=== PATIENT | male | born 1970 | race Caucasian/White ===

== ENCOUNTER → 2022-02-09 09:29 | Outpatient (CLI) | payer BC, SELFPAY ==
[2022-02-09 12:00] LABS: Add Manual Diff / Slide Review NO; Basophils Absolute Auto 0 /uL (0-100); Basophils Percent Auto 0.7 % (0-2); Eosinophils Absolute Auto 100 /uL (0-450); Eosinophils Percent Auto 1.1 % (2-4); Hemoglobin 14.1 g/dL (13.5-17.5); Lymphocytes Absolute Auto 1500 /uL (1100-4500); Lymphocytes Percent Auto 31.9 % (25-40); Mean Corpuscular HGB Conc 35.2 % (30-36); Mean Corpuscular Hemoglobin 31.9 PG (26-34); Mean Corpuscular Volume 90.7 fL (80-100); Monocytes Absolute Auto 400 /uL (0-900); Monocytes Percent Auto 7.7 % (3-14); Neutrophils Absolute Auto 2700 /uL (1500-7000); Neutrophils Percent Auto 58.6 % (50-75); Platelet Count 150 X10^3/uL (150-400); Red Blood Cell Count 4.41 X10^6/uL (4.5-5.9); Red Cell Distribution Width 13.6 % (11.6-14.8); White Blood Cell Count 4.6 X10^3/uL (4.5-11.0)
[2022-02-09 12:27] LABS: Alanine Aminotransferase 24 IU/L (<50); Albumin 4.6 g/dL (3.5-5.0); Albumin Globulin Ratio 1.6 (1.0-2.8); Alkaline Phosphatase 63 U/L (38-126); Aspartate Aminotransferase 29 IU/L (17-59); BUN Creatinine Ratio 16.9 (6-22); Bilirubin Total 0.6 mg/dL (0.2-1.3); Blood Urea Nitrogen 13 mg/dL (9-20); Calcium 9.1 mg/dL (8.4-10.2); Carbon Dioxide 28 mmol/L (22-32); Chloride 98 mmol/L (98-107); Cholesterol 164 mg/dL (140-199); Estimated Glomerular Filt Rate > 60 mL/min (>60); Globulin 2.8 g/dL (1.7-4.1); Glucose 81 mg/dL (70-100); HDL Cholesterol 52 mg/dL (40-60); HEMOLYSIS < 15 (0-50); LDL Cholesterol Calculated 84 mg/dL (<100); Potassium 4.2 mmol/L (3.4-5.1); Sodium 138 mmol/L (137-145); Total Protein 7.4 g/dL (6.3-8.2); Triglycerides 139 mg/dL (35-150)
[2022-02-09 17:11] LABS: Creatinine Urine Random 245.3 mg/dL
[2022-02-09 17:13] LABS: Microalbumi Creatinin Ratio Ur 7.3 ug/mg CR (<30); Microalbumin Urine Random 1.8 mg/dL (0-1.6)
== END ==
PROVIDERS: PCP Family Medicine; Referring Provider Family Medicine; Visit Provider Family Medicine
DX: E78.2 Mixed hyperlipidemia (principal); I10 Essential (primary) hypertension; K21.9 Gastro-esophageal reflux disease without esophagitis
CPT/HCPCS: 36415; 80053; 80061; 82043; 82570; 85025

== ENCOUNTER → 2022-02-15 09:01 | Outpatient (CLI) | payer BC, SELFPAY ==
--- NOTE | 2022-02-15 09:03 | DI.RAD.S_ITS ---
PROCEDURE: XR LUMBAR SPINE 2-3V INDICATIONS: chronic back/neck pain as well as bilateral hip pain TECHNIQUE: 3 views of the lumbar spine were acquired. COMPARISON: None. FINDINGS: Bones: 5 [id number] vertebrae are present. There is mild 4 mm grade 1 retrolisthesis of L1 on L2.. No vertebral body compression fractures. No suspicious bony lesions. Multilevel disc space narrowing degenerative endplate changes are most prominent at the L1-2 level. Facet hypertrophy is seen from L2-3 through L5-S1. Soft tissues: Overlying bowel gas pattern is normal. No suspicious soft tissue calcifications. IMPRESSION: Multilevel spondylosis. Lumbar spine MRI could be performed for further evaluation if indicated clinically. Dictated by: Nicholas Luna M.D. on 02/15/2022 at 11:31 Approved by: Nicholas Luna M.D. on 02/15/2022 at 11:34
--- NOTE | 2022-02-15 09:03 | DI.RAD.S_ITS ---
PROCEDURE: XR CERVICAL SPINE 2V OR 3V INDICATIONS: chronic neck pain with bilateral hand numbness at nighttime TECHNIQUE: 3 views of the cervical spine were acquired. COMPARISON: None. FINDINGS: Bones: No acute fractures or dislocations to the C7 level. The lateral masses of C1 appear intact on the odontoid view. No suspicious bony lesions. Multilevel degenerative endplate changes are seen from C4-5 through C6-7. There is multilevel uncovertebral joint and facet hypertrophy. Soft tissues: No prevertebral soft tissue swelling. IMPRESSION: Evkn-zv-fknzjqgu multilevel spondylosis. No acute osseous abnormality. Cervical spine MRI could be performed for further evaluation if indicated clinically and if there are no contraindications. Dictated by: Nicholas Luna M.D. on 02/15/2022 at 16:23 Approved by: Nicholas Luna M.D. on 02/15/2022 at 16:24
--- NOTE | 2022-02-15 09:03 | DI.RAD.S_ITS ---
PROCEDURE: XR HIP W PEL IF DONE ALEX MIN 4V INDICATIONS: chronic back/neck pain as well as bilateral hip pain TECHNIQUE: AP pelvis with lateral view of each hip. COMPARISON: None. FINDINGS: Bones: No acute fractures or dislocations. Pelvic ring appears intact. No suspicious bony lesions. There is moderate to severe narrowing of the superior left hip with subchondral sclerosis and marginal osteophyte formation. Moderate degenerative changes are seen at the right hip. Degenerative changes are seen in the lumbar spine and pubic symphysis. Soft tissues: The visualized bowel gas pattern is normal. No suspicious soft tissue calcifications. IMPRESSION: Moderate to severe left hip osteoarthrosis and moderate right hip osteoarthrosis. Dictated by: Nicholas Luna M.D. on 02/15/2022 at 11:34 Approved by: Nicholas Luna M.D. on 02/15/2022 at 11:36
--- NOTE | 2022-02-15 09:03 | DI.RAD.S_ITS ---
PROCEDURE: XR ELBOW LT MIN 3V INDICATIONS: left elbow bony growth TECHNIQUE: 3 views of the elbow were acquired. COMPARISON: None. FINDINGS: Bones: No acute fractures or dislocations. An enthesophyte is present at the olecranon at the region of the triceps tendon insertion. Soft tissues: No elbow joint effusion. Small rounded nonspecific calcification within the radial soft tissues of the distal upper arm only seen on 1 image, could be postinflammatory. IMPRESSION: 1. No acute fracture visualized. 2. An enthesophyte is present at the olecranon at the region of the triceps tendon insertion. Dictated by: Nicholas Alarcon M.D. on 02/15/2022 at 14:06 Approved by: Nicholas Alarcon M.D. on 02/15/2022 at 14:13
== END ==
PROVIDERS: PCP Family Medicine; Referring Provider Family Medicine; Visit Provider Family Medicine
DX: M47.817 Spondylosis without myelopathy or radiculopathy, lumbosacral region (principal); M47.812 Spondylosis without myelopathy or radiculopathy, cervical region; M16.0 Bilateral primary osteoarthritis of hip; M25.722 Osteophyte, left elbow; M47.816 Spondylosis without myelopathy or radiculopathy, lumbar region; M54.2 Cervicalgia; M54.50 Low back pain, unspecified; M25.551 Pain in right hip; M25.552 Pain in left hip; M25.522 Pain in left elbow; G89.29 Other chronic pain
CPT/HCPCS: 72040; 72100; 73080; 73522

== ENCOUNTER → 2023-01-17 08:48 | Outpatient (CLI) | payer BC, SELFPAY ==
[2023-01-17 09:36] LABS: Add Manual Diff / Slide Review NO; Basophils Absolute Auto 100 /uL (0-100); Basophils Percent Auto 1.1 % (0-2); Eosinophils Absolute Auto 200 /uL (0-450); Hematocrit 41.8 % (41-53); Hemoglobin 14.7 g/dL (13.5-17.5); Lymphocytes Absolute Auto 2300 /uL (1100-4500); Lymphocytes Percent Auto 40.7 % (25-40); Mean Corpuscular HGB Conc 35.2 % (30-36); Mean Corpuscular Hemoglobin 31.8 PG (26-34); Mean Corpuscular Volume 90.4 fL (80-100); Monocytes Absolute Auto 400 /uL (0-900); Monocytes Percent Auto 6.3 % (3-14); Neutrophils Absolute Auto 2700 /uL (1500-7000); Neutrophils Percent Auto 48.9 % (50-75); Platelet Count 172 X10^3/uL (150-400); Red Blood Cell Count 4.62 X10^6/uL (4.5-5.9); Red Cell Distribution Width 13.9 % (11.6-14.8); White Blood Cell Count 5.5 X10^3/uL (4.5-11.0)
[2023-01-17 09:51] LABS: Alanine Aminotransferase 35 IU/L (<50); Albumin 4.7 g/dL (3.5-5.0); Albumin Globulin Ratio 1.6 (1.0-2.8); Alkaline Phosphatase 63 U/L (38-126); Aspartate Aminotransferase 33 IU/L (17-59); Bilirubin Total 0.7 mg/dL (0.2-1.3); Blood Urea Nitrogen 12 mg/dL (9-20); Calcium 9.2 mg/dL (8.4-10.2); Carbon Dioxide 27 mmol/L (22-32); Chloride 101 mmol/L (98-107); Cholesterol 189 mg/dL (140-199); Estimated Glomerular Filt Rate > 60 mL/min (>60); Globulin 2.9 g/dL (1.7-4.1); Glucose 94 mg/dL (70-100); HDL Cholesterol 58 mg/dL (40-60); HEMOLYSIS < 15 (0-50); LDL Cholesterol Calculated 90 mg/dL (<100); Potassium 4.3 mmol/L (3.4-5.1); Sodium 138 mmol/L (137-145); Total Protein 7.6 g/dL (6.3-8.2); Triglycerides 207 mg/dL (35-150)
[2023-01-17 10:17] LABS: TSH w/ Reflex to FT4 1.24 uIU/mL (0.47-4.68)
[2023-01-17 12:10] LABS: Microalbumin Urine Random < 0.6 mg/dL (0-1.6)
== END ==
PROVIDERS: PCP Family Medicine; Referring Provider Family Medicine; Visit Provider Family Medicine
DX: E78.5 Hyperlipidemia, unspecified (principal); K21.9 Gastro-esophageal reflux disease without esophagitis; I10 Essential (primary) hypertension
CPT/HCPCS: 36415; 80053; 80061; 82043; 82570; 84443; 85025

== ENCOUNTER → 2023-06-29 17:20 | Outpatient (CLI) | payer BC, SELFPAY ==
--- NOTE | 2023-06-29 | DI.MRI.S_ITS ---
PROCEDURE: MR ANKLE LT WO CON INDICATIONS: PAIN TECHNIQUE: Noncontrast sagittal T1 spin echo and T2 fast spin echo with fat saturation, axial proton density fast spin echo and T2 fast spin echo with fat saturation, coronal T1 spin echo and T2 fast spin echo with fat saturation through the ankle/hindfoot. COMPARISON: None. FINDINGS: Image quality: Excellent. Bones and joints: Osseous edema is seen at the lateral aspect of the navicular, lateral talar head, medial cuboid, and anterior process of the calcaneus, which is suspicious for osseous contusions. Mild osseous edema is seen at the posterior calcaneus near the Achilles tendon insertion and. A moderate posterior calcaneal enthesophyte is present. No hindfoot coalitions. No osteochondral injuries of the talar dome. Medial structures: The deltoid ligament and the spring ligament complex are intact. The posterior tibialis, flexor digitorum longus, and flexor hallucis longus tendons are intact. The posterior tibial neurovascular bundle appears normal within the tarsal tunnel, without extrinsic mass effect. Lateral structures: The anterior talofibular, calcaneofibular, and posterior talofibular ligaments are intact. The anterior and posterior tibiofibular ligaments are intact. The peroneus longus and brevis tendons demonstrate mild tendinosis. An accessory peroneus quartus muscle is noted, an anatomical variant. The sinus tarsi demonstrates normal fatty signal. Anterior structures: The tibialis anterior, extensor hallucis longus, and extensor digitorum longus tendons appear intact. The dorsal talonavicular ligament appears intact. Posterior and plantar structures: Mild to moderate Achilles tendinosis. No significant tendon tearing is seen. There is mild thickening of the proximal plantar fascia without surrounding edema. No abductor digiti minimi muscle atrophy to suggest John neuropathy. IMPRESSION: 1. Mild osseous edema at the lateral aspect of the navicular and talar head and the medial aspect of the cuboid and anterior process of the calcaneus, which is suspicious for osseous contusions. 2. [id number]-ug-[id number] Achilles tendinosis. Mild osseous edema at the posterior calcaneus involving the Achilles insertion may be related to traction trabecular bone injury or an osseous contusion. No discrete tendon tearing is seen. 3. Mild chronic proximal plantar fasciitis. 4. Mild peroneus brevis and longus tendinosis. Approved by: Nicholas Luna M.D. on 06/30/2023 at 12:04
[2023-06-29 18:42] LABS: Uric Acid 7.3 mg/dL (3.5-8.5)
== END ==
PROVIDERS: PCP Family Medicine; Referring Provider Podiatrist; Visit Provider Podiatrist
DX: M76.62 Achilles tendinitis, left leg (principal); M72.2 Plantar fascial fibromatosis; R60.0 Localized edema; M79.672 Pain in left foot; R26.2 Difficulty in walking, not elsewhere classified
CPT/HCPCS: 36415; 73721; 84550

== ENCOUNTER → 2024-01-04 09:21 | Outpatient (CLI) | payer BC, SELFPAY ==
[2024-01-04 11:04] LABS: Add Manual Diff / Slide Review NO; Basophils Absolute Auto 100 /uL (0-100); Basophils Percent Auto 0.8 % (0-2); Eosinophils Absolute Auto 100 /uL (0-450); Eosinophils Percent Auto 2.2 % (2-4); Hematocrit 44.7 % (41-53); Hemoglobin 15.5 g/dL (13.5-17.5); Lymphocytes Absolute Auto 2500 /uL (1100-4500); Mean Corpuscular HGB Conc 34.7 % (30-36); Mean Corpuscular Hemoglobin 31.4 PG (26-34); Mean Corpuscular Volume 90.6 fL (80-100); Monocytes Absolute Auto 400 /uL (0-900); Monocytes Percent Auto 6.3 % (3-14); Neutrophils Absolute Auto 3300 /uL (1500-7000); Neutrophils Percent Auto 51.7 % (50-75); Platelet Count 177 X10^3/uL (150-400); Red Blood Cell Count 4.93 X10^6/uL (4.5-5.9); Red Cell Distribution Width 13.7 % (11.6-14.8); White Blood Cell Count 6.3 X10^3/uL (4.5-11.0)
[2024-01-04 11:52] LABS: Alanine Aminotransferase 31 IU/L (<50); Albumin 4.6 g/dL (3.5-5.0); Albumin Globulin Ratio 1.6 (1.0-2.8); Alkaline Phosphatase 76 U/L (38-126); Aspartate Aminotransferase 33 IU/L (17-59); BUN Creatinine Ratio 15.8 (6-22); Blood Urea Nitrogen 12 mg/dL (9-20); Calcium 9.7 mg/dL (8.4-10.2); Carbon Dioxide 26 mmol/L (22-32); Chloride 102 mmol/L (98-107); Cholesterol 198 mg/dL (140-199); Estimated Glomerular Filt Rate > 60 mL/min (>60); Globulin 2.8 g/dL (1.7-4.1); Glucose 90 mg/dL (70-100); HDL Cholesterol 52 mg/dL (40-60); HEMOLYSIS < 15 (0-50); LDL Cholesterol Calculated 86 mg/dL (<100); Potassium 5.1 mmol/L (3.4-5.1); Sodium 138 mmol/L (137-145); Total Protein 7.4 g/dL (6.3-8.2); Triglycerides 300 mg/dL (35-150)
[2024-01-04 11:54] LABS: TSH w/ Reflex to FT4 1.43 uIU/mL (0.47-4.68)
== END ==
PROVIDERS: PCP Family Medicine; Referring Provider Family Medicine; Visit Provider Family Medicine
DX: E78.5 Hyperlipidemia, unspecified (principal); I10 Essential (primary) hypertension; K21.9 Gastro-esophageal reflux disease without esophagitis
CPT/HCPCS: 36415; 80053; 80061; 84443; 85025

== ENCOUNTER → 2024-01-08 15:27 | Outpatient (CLI) | payer BC, SELFPAY ==
--- NOTE | 2024-01-08 15:28 | DI.RAD.S_ITS ---
PROCEDURE: XR HIP W PEL IF DONE ALEX MIN 4V INDICATIONS: chronic hip OA TECHNIQUE: AP pelvis with lateral view(s) of the bilateral hip(s). COMPARISON: [facility], CR, XR HIP W PEL IF DONE ALEX 3TO4V, 02/15/2022, 9:13. FINDINGS: Bones: No fractures or dislocations. Moderate right worse than left bilateral hip joint osteoarthritic changes are seen with significant joint space narrowing, subchondral sclerosis and marginal osteophyte formation not significantly changed from 2021 study. No evidence of avascular necrosis of femoral head. Pelvic ring appears intact. No suspicious bony lesions. Soft tissues: The visualized bowel gas pattern is normal. No suspicious soft tissue calcifications. IMPRESSION: Moderate left worse than right bilateral hip joint osteoarthritis. No pelvic or hip fracture. No evidence of avascular necrosis. Dictated by: Chris Pelayo M.D. on 01/09/2024 at 14:40 Approved by: Chris Pelayo M.D. on 01/09/2024 at 14:40
== END ==
LOC: RAD 15:28
PROVIDERS: PCP Family Medicine; Referring Provider Family Medicine; Visit Provider Family Medicine
DX: M16.0 Bilateral primary osteoarthritis of hip (principal); M25.551 Pain in right hip; M25.552 Pain in left hip; M54.50 Low back pain, unspecified; G89.29 Other chronic pain
CPT/HCPCS: 73522

== ENCOUNTER → 2024-11-18 15:31 | Outpatient (CLI) | payer BC, SELFPAY ==
--- NOTE | 2024-11-18 15:32 | DI.RAD.S_ITS ---
PROCEDURE: XR HIP W PEL IF DONE BILAT 2V INDICATIONS: Bilateral hip pain, back pain, L knee pain TECHNIQUE: AP pelvis with lateral view(s) of the bilateral hip(s). COMPARISON: [facility], , XR HIP W PEL IF DONE ALEX 3TO4V, 01/08/2024, 15:31. FINDINGS: Bones: No fractures or dislocations. Moderate osteoarthritic degenerative changes of the bilateral hips include joint space narrowing, marginal osteophytosis and acetabular subchondral sclerosis. Pelvic ring appears intact. No suspicious bony lesions. Soft tissues: The visualized bowel gas pattern is normal. No suspicious soft tissue calcifications. IMPRESSION: Degenerative change of the bilateral hips without evidence of acute bony abnormality. Dictated by: Sy Loya M.D. on 11/19/2024 at 10:23 Approved by: Sy Loya M.D. on 11/19/2024 at 10:24
--- NOTE | 2024-11-18 15:32 | DI.RAD.S_ITS ---
PROCEDURE: XR LUMBAR SPINE 2-3V INDICATIONS: Bilateral hip pain, back pain, L knee pain TECHNIQUE: 3 views of the lumbar spine were acquired. COMPARISON: [facility], , XR LUMBAR SPINE 2-3V, 02/15/2022, 9:13. FINDINGS: Bones: 5 [id number]-hirbtet vertebrae are present. Mild multilevel retrolisthesis is stable in appearance and includes retrolisthesis of T12 on L1 measuring 3 mm, of L1 on L2 measuring 5 mm and of L2 on L3 measuring 3 mm. There is otherwise normal bony alignment. Moderate disc height loss at the T12-L1, L1-L2 and L5-S1 levels with adjacent endplate sclerosis and multilevel anterior osteophytosis. No vertebral body compression fractures. No suspicious bony lesions. Soft tissues: Overlying bowel gas pattern is normal. No suspicious soft tissue calcifications. IMPRESSION: Stable appearing multilevel spondylosis and spondylolisthesis without evidence of acute osseous Dictated by: Sy Loya M.D. on 11/19/2024 at 10:25 Approved by: Sy Loya M.D. on 11/19/2024 at 10:27
--- NOTE | 2024-11-18 15:32 | DI.RAD.S_ITS ---
PROCEDURE: XR KNEE LT 3V INDICATIONS: Bilateral hip pain, back pain, L knee pain TECHNIQUE: 3 views of the knee were acquired. COMPARISON: None. FINDINGS: Bones: No fractures or dislocations. Moderate medial and mild to moderate lateral tibiofemoral and moderate patellofemoral compartment narrowing with associated osteophytosis. No suspicious bony lesions. Soft tissues: Trace joint effusion. No suspicious soft tissue calcifications. IMPRESSION: KL grade 2 tricompartmental osteoarthritis without evidence of acute osseous abnormality. Trace joint effusion. Dictated by: Sy Loya M.D. on 11/19/2024 at 10:24 Approved by: Sy Loya M.D. on 11/19/2024 at 10:25
== END ==
PROVIDERS: PCP Family Medicine; Referring Provider Family Medicine; Visit Provider Family Medicine
DX: M17.12 Unilateral primary osteoarthritis, left knee (principal); M47.816 Spondylosis without myelopathy or radiculopathy, lumbar region; M43.16 Spondylolisthesis, lumbar region; M25.551 Pain in right hip; M25.552 Pain in left hip; M25.562 Pain in left knee; M54.50 Low back pain, unspecified
CPT/HCPCS: 72100; 73521; 73562

== ENCOUNTER → 2024-12-13 07:44 | Outpatient (CLI) | payer BC, SELFPAY ==
[2024-12-13 08:18] LABS: Add Manual Diff / Slide Review NO; Hematocrit 42.3 % (41-53); Hemoglobin 14.3 g/dL (13.5-17.5); Lymphocytes Absolute Auto 1900 /uL (1100-4500); Mean Corpuscular HGB Conc 33.8 % (30-36); Mean Corpuscular Hemoglobin 30.4 PG (26-34); Mean Corpuscular Volume 90.0 fL (80-100); Platelet Count 161 X10^3/uL (150-400)
--- NOTE | 2024-12-13 08:18 | EKG_ITS ---
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
[2024-12-13 08:27] LABS: Hemoglobin A1C% w Est Avg Glu 5.7 % (4.0-6.0)
[2024-12-13 08:56] LABS: HEMOLYSIS < 15 (0-50)
[2024-12-13 09:07] LABS: Prealbumin 23.1 mg/dL (17.6-36.0)
[2024-12-13 09:25] LABS: Vitamin D 25 Hydroxy (D3) 35.0 ng/mL (30.0-100.0)
[2024-12-13 09:31] LABS: TSH w/ Reflex to FT4 1.03 uIU/mL (0.47-4.68)
[2024-12-13 09:36] LABS: Alanine Aminotransferase 21 IU/L (<50); Albumin 4.4 g/dL (3.5-5.0); Albumin Globulin Ratio 1.8 (1.0-2.8); Alkaline Phosphatase 84 U/L (38-126); Blood Urea Nitrogen 15 mg/dL (9-20); Calcium 9.1 mg/dL (8.4-10.2); Carbon Dioxide 26 mmol/L (22-32); Chloride 106 mmol/L (98-107); Estimated Glomerular Filt Rate > 60 mL/min (>60); Globulin 2.4 g/dL (1.7-4.1); Glucose 106 mg/dL (70-99); Potassium 4.6 mmol/L (3.4-5.1); Sodium 139 mmol/L (137-145); Total Protein 6.8 g/dL (6.3-8.2)
[2024-12-22 14:11] LABS: Percent Free Testosterone 2.64
== END ==
PROVIDERS: PCP Family Medicine; Referring Provider Orthopaedic Surgery Adult Reconstructive Orthopaedic Surgery; Visit Provider Orthopaedic Surgery Adult Reconstructive Orthopaedic Surgery
DX: Z12.5 Encounter for screening for malignant neoplasm of prostate (principal); I10 Essential (primary) hypertension; R68.82 Decreased libido; E78.2 Mixed hyperlipidemia; Z13.1 Encounter for screening for diabetes mellitus; M25.551 Pain in right hip; M25.552 Pain in left hip; M54.50 Low back pain, unspecified; G89.29 Other chronic pain; Z01.812 Encounter for preprocedural laboratory examination; R53.83 Other fatigue
CPT/HCPCS: 36415; 80053; 82306; 83036; 84134; 84402; 84403; 84443; 85025; 93005; G0103

== ENCOUNTER → 2025-01-27 10:22 | Outpatient (CLI) | payer OTHER, SELFPAY | PROVIDERS: PCP Family Medicine; Referring Provider Orthopaedic Surgery Adult Reconstructive Orthopaedic Surgery; Visit Provider Orthopaedic Surgery Adult Reconstructive Orthopaedic Surgery | DX: Z01.818 Encounter for other preprocedural examination (principal) | CPT/HCPCS: 80321 ==

== ENCOUNTER 2025-04-14 06:12 | Day surgery (SDC) | payer OTHER, SELFPAY ==
[2025-04-07 09:29] VITALS: BMI 29.7
[2025-04-14] VITALS (11 sets, daily range): BP systolic 92–140; BP diastolic 47–89; PULSE 65–74; RESP 16–18; TEMP 36.2–36.7; O2SAT 93–100
--- NOTE | 2025-04-14 06:00 | DI.RAD.S_ITS ---
PROCEDURE: XR HIP W PEL IF DONE LT 2V INDICATIONS: CECE TECHNIQUE: 3 intraoperative fluoroscopic view(s) of the hip acquired. COMPARISON: [facility], CR, XR HIP W PEL IF DONE BILAT 2V, 11/18/2024, 15:48. FINDINGS: Intraoperative fluoroscopic images shows left total hip arthroplasty in progress. IMPRESSION: Fluoro guidance was provided intraoperatively for left total hip arthroplasty performed by ordering clinician. Dictated by: Chris Pelayo M.D. on 04/14/2025 at 9:53 Approved by: Chris Pelayo M.D. on 04/14/2025 at 9:54
[2025-04-14] MEDS: ACETAMINOPHEN 325 MG TABLET 975 MG PO (07:08)
[2025-04-14] MEDS: LACTATED RINGERS 1,000 ML 42 ML IV (07:08)
[2025-04-14] MEDS: MELOXICAM 7.5 MG TABLET 15 MG PO (07:08)
--- NOTE | 2025-04-14 07:24 | PM.PREOP ---
Pre-operative Note Interval Note History & Physical reviewed/Exam performed by Physician: Yes Changes to H&P: No
[2025-04-14] MEDS: TRANEXAMIC ACID 1,000 MG in SODIUM CHLORIDE 0.9% 100 ML 200 MG IV ×2 (08:00→09:34)
--- NOTE | 2025-04-14 08:19 | SUR.OPER ---
Supine on padded Hedrick table with bilateral legs secured in padded positioning boots and suspended in positioning spars, operative leg in traction per surgeon. Head on one pillow. Arm on non-operative side secured on padded armboard <90 degrees abduction. Arm on operative side padded and resting across chest then secured with tape over sheet. Padded perineal post in place per surgeon.
[2025-04-14] MEDS: KETOROLAC 30 MG/ML VIAL 15 MG INJ (08:28)
--- NOTE | 2025-04-14 09:39 | P.OP_ITS ---
Operative Date/Time/Diagnoses Date of procedure: 04/14/25 Time of procedure: 07:45 Pre-op diagnosis: Left hip osteoarthritis and avascular necrosis Post-op diagnosis: same Procedure & Clinicians Procedure: Left total hip arthroplasty Same procedure(s) as scheduled: Yes Surgeon: Roberto Suarez Assisted?: Yes Wet Cotton Feeder: Coco Hilliard Anesthesia Type: Spinal, Sedation and Local Operative Notes Findings: Severe arthritis Applied: implant(s) Estimated Blood Loss (mL): 200 Procedure in detail: 1. Left Uncemented Direct Anterior Frankie Total Hip Arthroplasty (43108) 2. Computer-Assisted Musculoskeletal Surgical Navigational Orthopedic Procedure Using Fluoroscopic Image Guidance (0054T) Implants: * G7 PPS size 58 cup? * Z1 femoral stem size 8 standard offset? * 40 mm +0 ceramic femoral head? Procedure Summary: This 54-year-old male patient had left hip arthritis as well as avascular necrosis. Intraoperatively today I did note an area of subchondral collapse consistent with avascular necrosis after removing his femoral head. He had a muscular body habitus and a conjoined tendon release was required to access his femur. His operative site was 2 mm long preoperatively and following final component insertion on the ortho grid overlay I had replicated this on the operative side which was very slightly long relative to the nonoperative side. Procedure in Detail: This patient was seen preoperatively and evaluated for hip pain which was refra ctory to numerous nonoperative treatment modalities. Their hip pain correlated with radiographic changes demonstrating significant degeneration in the hip joint. The risks and benefits of continued nonoperative management versus operative management were discussed at length and all of the patient?s questions were answered. Additional educational materials providing further details beyond our discussion in clinic were provided via a publicly available patient education video which included the incidence of medical complications associated with total hip arthroplasty, reasons for revision following total hip arthroplasty, and patient satisfaction rates following total hip arthroplasty. With this understanding of the risks inherent to the procedure, the patient elected to move forward with operative management. Following preoperative optimization, the patient was scheduled for surgery. The patient was met in the preoperative holding area the day of the procedure and all questions were ans wered. The patient?s nares were swabbed in order to decolonize them from MRSA. Informed consent was signed and the left limb was marked with indelible ink.? The patient was brought back to the operating room where anesthesia was induced. The patient was transferred to the [place] table and all bony prominences were padded. The operative site was prepped and draped in the usual sterile fashion. Prior to incision, tranexamic acid and cefazolin were administered. Operative templating images were displayed demonstrating the anticipated implant sizes and correct operative extremity. A timeout procedure was performed verifying the patient?s identity, medical comorbidities, allergies, relevant medications, anesthesia type and the surgical plan. All present were in agreement. The assistance of a physician human resources assistant manager was required for positioning, room setup, soft tissue retraction and wound closure. Without this assistance, the procedure would have been significantly more challenging and time consuming.?? A direct anterior approach to the hip was utilized. This was performed with a longitudinal incision through a Heuter interval. The incision was planned 2 cm distal and 2 cm lateral to the ASIS extending towards the lateral patella, in line with the muscle body of the TFL. Following incision, the subcutaneous tissue was dissected while taking care to avoid injury to the lateral femoral cutaneous nerve. The fascia overlying the TFL was identified by dissecting off the overlying fat and identifying perforating vessels to the TFL. The TFL fascia was incised and dissected away from the medial border of the TFL. A retractor was placed over the superior femoral neck between the abductors and the hip capsule and used to reflect the TFL laterally. A Austin self-retainer was then placed in the distal aspect of the wound between the TFL and the rectus femoris. This was tensioned to open up the direct anterior interval and the lateral circumflex vessels were identified and coagulated using electrocautery. The floor of the TFL fascia was incised, exposing the pericapsular fat overlying the hip capsule. A second cobra retractor was placed on the inferior femoral neck. A retractor was placed on the anterior wall of the acetabulum and used to tension the reflected head of rectus femoris, which was then released in order to limit soft tissue tension. A capsulotomy was made in the midline of the anterior hip capsule in line with the femoral neck ending at the vastus tubercle. The anterior retractor was removed as soon as the capsulotomy was completed in order to limit the amount of time that a soft tissue retractor remained on the anterior wall and limit tension on the femoral nerve. Tag stitches were placed in the superior and inferior leaflets of the hip capsule. An Rod soft tissue retractor was introduced over the tag stitches and tensioned in the interval between the rectus femoris and the TFL in order to retract and protect those muscles. The cobra retractors were replaced intracapsularly, with one over the superior neck in the pocket created by the base of the greater trochanter and the other on the femoral head. The capsulotomy was extended laterally to the base of the greater trochanter and medially to the lesser trochanter. This required externally rotating the hip. Once the lesser trochanter had been identified, a neck cut was planned according to measurements from preoperative templating. A ruler was cut at the length measured between the superior aspect of the lesser trochanter and the collar of the prosthesis. This line was extended towards the inferior aspect of the lateral cobra retractor to plan a cut which would leave minimal residual femoral neck laterally. The neck was cut at 60 degrees of external rotation along that line. A second cut was performed to remove a large napkin ring and facilitate head extraction. The napkin ring cut and femoral head were removed.?? A broad anterior wall retractor was placed between the labrum and the anterior capsule so that the anterior capsule would prevent capturing and pinching the femoral nerve anteriorly. An additional retractor was placed on the posterior wall. External rotation and traction were applied through the [place] table so that the cut surface of the femoral neck would not restrict access to the acetabulum. The labrum was excised sharply and the pulvinar was excised with electrocautery to limit bleeding from branches of the obturator artery. Acetabular reamers were selected based on preoperative templating and measurements of the excised femoral head. These were introduced into the acetabulum. Fluoroscopy was utilized to replicate a standing AP pelvis radiograph by centering over the pelvis, rotating until there was appropriate symmetry between the obturator foramen, and introducing caudal tilt to match the position of the pubic symphysis relative to the sacrococcygeal junction according to the patient?s anatomy. Once satisfied with the reaming depth corresponding to the preoperative template and the pinch fit between the columns, an appropriate sized acetabular cup was selected which would provide 1 mm of press-fit. This cup was introduced and manipulated until appropriate abduction and anteversion angles were obtained with careful attention to appropriate abduction and anteversion angles as evaluated by the position of the cup relative to the anterior and posterior fowler of the acetabulum and the AP fluoroscopy which recreated the patient?s standing radiograph. The cup was impacted into place. Peripheral osteophytes were removed. The acetabular liner was then placed with care to ensure locking of the locking mechanism. Attention was then turned to the femur. All retractors were removed, traction was released, a retractor was placed in the interval between the hip capsule and the gluteus minimus. The lateral capsule was released using electrocautery. Traction was released and a [place] hook was placed posteriorly around the proximal femur at the level of the vastus ridge. The table height was lowered in order to restrict the tension on the anterior structures during hip hyperextension to limit the risk of femoral nerve palsy. With traction off and the hip at 90 degrees of external rotation, the hip was hyperextended and adducted while manually elevating the femur away from the acetabulum with the [place] hook to avoid hooking the greater trochanter on the pelvis. An asymmetric retractor was placed over the calcar and a broad double-pronged retractor was placed over the greater trochanter. The tag stitch capturing the lateral leaflet of the capsule was moved to the medial side, leaving the conjoined and piriformis tendons isolated in the face of the greater trochanter. The hip was externally rotated and elevated. A release of the conjoined tendon was necessary in order to obtain adequate exposure for broaching. The canal was opened with an opening broach and a rasp was used to remove cancellous bone. A rongeur was used to remove the residual lateral bone at the base of the greater trochanter to avoid placing the stem in varus. The femur was then broached to the appropriate sized stem yielding good rotational fit and fill of the canal as well as appropriate version of the stem trial. Neck and head trials were placed, all retractors were removed and the hip was returned to neutral abduction and extension. I then reduced the hip and manually trialed it before changing surgical gloves. Initial trialing was performed with a size 7 broach, a standard offset neck and a -3.5 head. I initially manually externally rotated the hip and found that it immediately dislocated so I switched to a +0 head. This resolved the instability as I was now unable to manually dislocate the hip. I then locked the hip in 45 degrees of external rotation and dropped it to the floor with traction off which demonstrated no instability. An AP pelvis fluoroscopic image matching the preoperative standing radiograph with both lesser trochanters visible and both hips in 40 degrees of external rotation demonstrated that the operative side was very slightly long and had nearly identical offset to the nonoperative side. AP and lateral hip fluoroscopic images were obtained to evaluate the broach size which demonstrated good canal fill. The hip was dislocated and I returned to the broaching position. Based on my evaluation during initial trialing I planned to place the definitive implants. Upon returning to the broach in position I found that the size 7 broach was rotationally unstable so I upsize to a size 8 broach and sink that to the same position. The definitive stem was placed and the trunnion was cleaned and dried. I placed a ceramic head onto the trunnion and impacted it into place on the Sheppard taper.?? All retractors were removed and the hip was reduced. A dilute mixture of betadine and peroxide was used to bathe the soft tissues during final fluoroscopic assessment. Appropriate component positioning was confirmed on an ortho grid overlay image. Appropriate stem fill was evaluated on AP and lateral hip radiographs. No previously unrecognized fractures were identified on these radiographs. There was no hip instability with maximum external rotation as well as a 45 degree drop test. The hip was copiously irrigated with pulse lavage. The capsule was closed with absorbable interrupted suture. The TFL fascia was closed with barbed suture while carefully protecting the lateral femoral cutaneous nerve from entrapment. A mixture of Ropivacaine, Epinephrine and Toradol was infiltrated throughout the soft tissues. The skin was closed with 2-0 and 3-0 sutures. Surgical glue was applied and a soft dressing was placed.??The sponge, instrument and needle counts were reported as being correct at the end of the case.??No obvious complications occurred. The patient was transferred from the [place] table back to a stretcher. The patient emerged from anesthesia without difficulty and was taken to the PACU in a stable condition.? Plan for aftercare: * No hip precautions * Weightbearing as tolerated * Aspirin 81 twice per day for DVT prophylaxis * Anticipate discharge home today * Multimodal pain regimen with no IV opioids ordered * Follow up at [facility] in 2 weeks Complications: none Post-operative Condition: stable Disposition: same day surgery
--- NOTE | 2025-04-14 10:30 | DI.RAD.S_ITS ---
PROCEDURE: XR HIP W PEL IF DONE LT 2V INDICATIONS: POST OP LEFT ANTERIOR HIP TECHNIQUE: AP view of the pelvis and lateral view of left hip. COMPARISON: [facility], [facility], XR HIP W PEL LT 2V, 04/14/2025, 8:39. FINDINGS: Acute postsurgical changes of left total hip arthroplasty. No hardware failure. Moderate right hip osteoarthritis. No fracture. No dislocation. IMPRESSION: Expected postoperative changes. Dictated by: Giovani Ellsworth M.D. on 04/14/2025 at 10:53 Approved by: Giovani Ellsworth M.D. on 04/14/2025 at 10:54
--- NOTE | 2025-04-14 12:03 | SUR.PHASEII ---
1130 Pt able to stand at bedside with walker and 2 nurse assist. good pms. c/o minimal pain. Called PT and had to leave message.
--- NOTE | 2025-04-14 14:17 | PT.IIE ---
Current Diagnoses Unilateral primary osteoarthritis, left hip (04/14/25) Surgery Performed Operation Date: 04/14/25 07:45 Actual Procedures p Total Hip Arthroplasty/Anterior Approach(Left) - Roberto Suarez MD Surgical History (Last Updated 04/07/25 @ 10:11 by Lilli Mcdermott RN) History of ankle surgery History of removal of skin mole Medical History (Last Updated 12/06/24 @ 14:48 by Roberto Suarez MD) Chronic low back pain GERD (gastroesophageal reflux disease) Hyperlipidemia Hypertension Primary osteoarthritis of both hips Physical Therapy Inpatient Evaluation/Re-Eval M1 PT IP Prior Functional Status Start: 04/14/25 14:49 Freq: NEEDED Status: Active Protocol: Document 04/14/25 13:45 DCW (Rec: 04/14/25 15:00 DCW [id number]) Medical Review Prior Functional Status Medical History Yes Reviewed Social History Household Members spouse Living Arrangements House Number of Stairs To Able to live on first floor upon return home, no YOLANDA Enter/Railing? Home Equipment Front Wheel Walker M2 PT-IP Current Condition Start: 04/14/25 14:49 Freq: NEEDED Status: Active Protocol: Document 04/14/25 13:45 DCW (Rec: 04/14/25 15:00 DCW [id number]) Physical Therapy Current Condition Current Condition Evaluation Date 04/14/25 Treatment Diagnosis L Anterior CECE Onset Date 04/14/25 M3 PT-IP Subjective Start: 04/14/25 14:49 Freq: NEEDED Status: Active Protocol: Document 04/14/25 13:45 DCW (Rec: 04/14/25 15:00 DCW [id number]) Subjective Physical Therapy Visit Type Type Initial Evaluation Visit Start Time 13:45 Visit Stop Time 14:17 Notes Pt alert in PACU bed with at bedside. Pt has been up and dressed with nursing. Denying pain at the moment . Agreeable for PT assessment Number of SYRUP FILTERER Visits 0 Physical Therapy Visit Comments Patient Goals To get home tonight, return to gym as soon as possible Therapy Pain Assessment Pain Present Pain Present Denied Pain M4 PT-IP Mobility and Gait Start: 04/14/25 14:49 Freq: NEEDED Status: Active Protocol: Document 04/14/25 13:45 DCW (Rec: 04/14/25 15:00 DCW [id number]) PT-Bed Mobility Assessment Rolling Type of Rolling Roll to Right Level of Assist Standby Assistance Supine to Sit Supine to Sit Standby Assistance Sit to Supine Sit to Supine Standby Assistance PT-Transfer Assessment Sit to and From Stand Sit to and from Standby Assistance Stand Equipment Transfer Assistive Bed Rail,Gait Belt,Front Wheeled Walker Device Orthotic/Prosthetic No Devices or Brace: Comments Mobility Comments Pt able to perform sit<->stand from EOB SBA, follows direction well, able to bear weight through surgical limb. Gait Assessment Gait Gait Assistance Standby Assistance Required: Distance (Feet) 40 Able to Maintain Yes Weight Bearing Status During Gait Assistive Devices Assistive Device Gait Belt,Front Wheeled Walker Gait Deviations General Gait Pattern Antalgic,Decreased Stride Length,Decreased Feet Clearance Comments Gait Comments Ambulates from bed to restroom 20' away, able to stand at toilet and attempt unsuccessfully to urinate, then ambulate return to PACU bed. M5 PT-IP Objective Assessments Start: 04/14/25 14:49 Freq: NEEDED Status: Active Protocol: Document 04/14/25 13:45 DCW (Rec: 04/14/25 15:00 DCW [id number]) Orientation Orientation/Cognition Level of Alertness Alert Orientation Name,Birthday,Month,Date,Year,Place,Situation Language Function No Deficits Noted Ability Safety Awareness Understands Safety Issues Memory Description No Deficits Noted Gross Range of Motion Upper Extremity ROM Assessment Within Functional Limits Lower Extremity ROM Assessment Left Impaired Strength Comments Strength Comments Able to lift left LE against gravity at hip, good quad control M6 PT-IP Treatment Start: 04/14/25 14:49 Freq: NEEDED Status: Active Protocol: Document 04/14/25 13:45 DCW (Rec: 04/14/25 15:00 DCW [id number]) Physical Therapy Treatment Other Treatments Other Treatment Review post-op hip exercises, including ankle pumps, QS Performed , GS, heel slides. Handout provided M7 PT-IP Assessment and Plan Start: 04/14/25 14:49 Freq: NEEDED Status: Active Protocol: Document 04/14/25 13:45 DCW (Rec: 04/14/25 15:00 DCW [id number]) PT Summary Assessment and Plan Potential Rehabilitation Excellent Potential Status of Condition Stable at Evaluation Summary Impairments Pain,ROM,Strength,Balance,Transfers,Gait,Activity Tolerance Assessment Summary Pt evaluated on day of surgery s/p left anterior CECE. Pt doing very well at this time, performs transfers and gait SBA using FWW, no safety concerns noted. Pt and noted understanding of post-op HEP. Pt already scheduled for out-patient PT in one week. From PT perspective, pt is safe to return home with assistance at this point when medically cleared. Frequency of Treatment Frequency Of Discharge Treatment Weight Bearing Status Weight Bearing Weight Bear as Tolerated Status Recommendations To Nursing Amount of Assist Standby Assistance Needed Discharge Recommendations PT Discharge Home,Home with Assistance Recommendations Transportation Needs Private Vehicle at Discharge - PT assist 0
--- NOTE | 2025-04-14 15:10 | SUR.PHASEII ---
1400 PT here and evaluates patient. ok'd for discharge but pt is unable to void. Bladder scan show's approx 100 mls. 1500 pt voids and iv dc'd.
== END 2025-04-14 15:00 | disposition home or self-care (01) ==
PROVIDERS: PCP Family Medicine; Referring Provider Family Medicine; Visit Provider Orthopaedic Surgery Adult Reconstructive Orthopaedic Surgery
PROC: (CPT 27130; principal; 2025-04-14 07:45)
DX: M16.12 Unilateral primary osteoarthritis, left hip (principal); M87.052 Idiopathic aseptic necrosis of left femur; Z87.891 Personal history of nicotine dependence; M25.752 Osteophyte, left hip
CPT/HCPCS: 27130; 73502; 76000; 82962; 97161; 97535; C1776; J0689; J1100; J1885; J2704; J7050; J7120

== ENCOUNTER → 2025-05-12 16:36 | Outpatient (ROUT) | payer OTHER, SELFPAY | PROVIDERS: PCP Family Medicine | DX: Z79.899 Other long term (current) drug therapy (principal); L70.0 Acne vulgaris | CPT/HCPCS: 87070; 87205 ==